=== PATIENT | female | born 1945 | race Caucasian/White ===

== ENCOUNTER → 2016-09-22 | Outpatient (CLI) | payer OTHER, BC ==
[~2016-09-22] MED LIST: ASCO500T3 PO; CALC-393 PO; CHOL1TAB2 PO; CITA20TA4 PO; GLUCTAB7 PO; LATA0.5S OPB; LORA-741 PO; MELO7.5T5 PO; MULT-506 PO; MULT-842 PO; NSS OPB; PRLSR20 PO; ROSU20TA PO; TAMO20TA9 PO
[2016-09-22 10:12] VITALS: BP 136/63; PULSE 58; TEMP 36.5; O2SAT 98
--- NOTE | 2016-09-22 11:45 | Radiation Oncology Follow-Up ---
Radiation Oncology Follow-Up Date of Visit Sep 22, 2016. Reason For Visit One-month follow-up and cancer survivorship care plan Radiation Completion Date finished 08-21-2016 using accelerated partial breast irradiation Diagnosis (1) Intraductal carcinoma of left breast Status: Acute Onset Date: 05/19/2016 Location: central Stage: 0 Permanent Comment: Abnormal left breast mammogram 05/08/16 Status post steriotactic biopsy 05/19/16 showed DCIS Grade 3 Estrogen receptor positive and progesterone receptor positive Status post Lumpectomy 06/30/2016 pTis NX Stage 0 Status post completion of radiation therapy 08/21/2016 received 3850 cGy utilizing accelerated partial breast irradiation Last Edited By: Parvin Turner on Sep 06, 2016 17:46 History of Present Illness Ms. Gallo is a 70-year-old female with a distant history of breast cancer. The patient's paternal aunt had breast cancer. The patient was followed by screening mammograms on 05/08/2016 a bilateral screening mammogram was performed. This showed a new developing grouped calcification in the inner lower left breast, anterior depth that was not definitively identified on prior studies. Spot magnification views were therefore recommended. On 05/12/2016 the patient underwent a left breast diagnostic mammogram with spot magnification views. Calcifications were noted in the inner lower left breast, anterior depth which were definitely not seen on prior studies. Tissue sampling was recommended. Therefore on 05/19/2016 the patient underwent a stereotactic biopsy of the left breast microcalcifications at the 7 o'clock position 2.8 cm from the nipple. 3 passes were made. 2 passes revealed an intermediate grade DCIS. The third pass taken 3.6 cm from the nipple at the 7 o 'clock position revealed a high-grade ductal carcinoma in situ. A single a scopic focus was indefinite for infiltrative duct adenocarcinoma. There was expansive comedonecrosis with an architectural pattern that is solid and associated microcalcifications. Specimen: [id number]. This tissue was ultimately reviewed at the [facility]. Estrogen and progesterone receptors were performed. Estrogen receptors were positive as were progesterone receptors. Case: [id number]. Patient was seen by Dr. Alfonzo Carrillo to discuss definitive treatment options. The patient agreed to proceed with a breast conserving technique. Therefore on 06/30/2016 he performed a left breast needle localization biopsy for the high -grade DCIS. This confirmed residual ductal carcinoma in situ, high-grade with comedonecrosis. The extent of the DCIS appeared to be at minimum 2.0 x 1.0 x 1.0 cm. In one focus there was DCIS 0.7 cm from DCIS in the same section thus the actual size may be larger than the above estimate. DCIS approached the medial margin at less than 0.1 cm from this margin in multiple sections. DCIS is at least several millimeters from all the other margins. The final margin however was negative. Case: [id number]. The patient is a candidate for adjuvant antiestrogen therapy. We were asked to see the patient to review with her the role of adjuvant radiation in this setting. It is for this reason the patient is seen in referral. She underwent CT simulation and was found to be a candidate for accelerated partial breast treatment. She completed treatment 08/21/2016 and received 3850 cGy. Interim History She is doing well over this past month. She did develop an area of redness in the center of the left breast. She has some mild tenderness. This especially causes discomfort when the seat belt is a crossed her chest. She does have a small padded cloth that she places under the seat belt which helps to relieve discomfort when wearing the seat belt. She did experience some peeling of the skin and then a small amount of drainage. This resolved and has steadily healed. There is only some remaining dryness. She has seen Dr. Carrillo and was started on tamoxifen. She is tolerating this well and has no side effects. She stated that she will be scheduled for mammography at her next visit. She has noted no masses or change of the axilla. Allergies Coded Allergies: Metronidazole (Verified Allergy, Unknown, Nausea/vomiting, 07/26/16) Penicillins (Verified Allergy, Unknown, Hives, 07/26/16) Home Medications Scheduled Ascorbic Acid (Vitamin C), 1 TAB PO DAILY Calcium Carbonate (Calcium), 2 TAB PO DAILY Cholecalciferol (Vitamin D-3), 2 TAB PO DAILY Citalopram Hydrobromide (Citalopram Hydrobromide), 1 TAB PO DAILY Latanoprost (Xalatan 0.005% Oph Shannan), 1 DROPS OPB HS Meloxicam (Mobic), 7.5 MG PO DAILY Multiple Minerals W/ Vitamins (Juan Mag Zinc +D3), 1 TAB PO DAILY Multivitamin (Multivitamin), 1 TAB PO DAILY Omeprazole (Prilosec), 20 MG PO DAILY Rosuvastatin Calcium (Crestor), 1 TAB PO DAILY Tamoxifen (Nolvadex), 20 MG PO DAILY [Nss ], 1 DROP OPB TID Scheduled PRN Lorazepam (Ativan), 0.5 MG PO Q6H PRN for Insomnia Review of Systems Gastrointestinal: Symptoms: WNL Oral: Symptoms: No Problems Respiratory: Symptoms: WNL Urinary: Symptoms: Nocturia Comments: nocturia times 2 Skin: Symptoms: Mod-Brisk Erythema Other Skin Symptoms: left breast Breast: Right Upper Arm Measurement: 28.5 Right Mid Arm Measurement: 22.5 Right Wrist Measurement: 15.4 Left Upper Arm Measurement: 27.0 Left Mid Arm Measurement: 21.0 Left Wrist Measurement: 15.0 Arm Dominence: Right Patient Cosmetic Evaluation: Fair Staff Cosmetic Evalaluation: Fair Physical Exam Vital Signs Date Time Temp Pulse Resp B/P Pulse Ox O2 Delivery O2 Flow Rate FiO2 09/22/16 10:12 36.5 58 16 136/63 98 Pain: Side: Bilateral Patient Pain Scale: 0 - 10 Initial Pain Intensity: 0.0 Fatigue: None General Appearance: no apparent distress Eyes: normal inspection, EOMI ENT: normal ENT inspection, hearing grossly normal Neck: no adenopathy, thyroid normal Respiratory/Chest: lungs clear, no respiratory distress, no accessory muscle use Breast: Breast examination reveals well-healed periareolar incision of the left breast. There is mild area centrally. There is mild edema. There is generalized tenderness to the breast. There are no masses. She has no skin retractions. There is mild dryness of the skin centrally. Using the [place] score cosmesis she has a good outcome. The right breast showed no masses or tenderness and no axillary adenopathy. Cardiovascular: regular rate, rhythm, no gallop, no murmur Neurologic/Psychiatric: no motor/sensory deficits, alert, normal mood/affect Skin: warm/dry Lymphatic: no adenopathy Assessment & Plan Plan: Continue regular follow-up with her primary care provider and Dr. Carrillo. She was given samples of Aquaphor to use at bedtime for the skin dryness. Mammography is going to be scheduled at her next visit with Dr. Carrillo. Today we completed a cancer survivorship care plan. A copy of the document was given to the patient. Please see that document for further information. We asked her to return to our office in 6 months. She may call if she has any questions or concerns in the interim. Total Time In Follow-Up I spent 20 minutes speaking to the patient and performing examination. I spent 20 minutes reviewing information in completing this note. Copy To Alfonzo Carrillo M.D.; Khris Hayward PA-C
== END | disposition home or self-care (01) ==
LOC: C.ONC 09:59
PROVIDERS: ATTEND Physician Assistant Medical
DX: Z08 Encounter for follow-up examination after completed treatment for malignant neoplasm (principal); Z92.3 Personal history of irradiation; Z85.3 Personal history of malignant neoplasm of breast

== ENCOUNTER → 2017-03-20 | Outpatient (CLI) | payer OTHER, BC ==
[2016-09-22 10:12] VITALS: BP 136/63; PULSE 58
[~2017-03-20] MED LIST changes: -GLUCTAB7 PO; +TAMO20TA47 PO; -TAMO20TA9 PO
[2017-03-20 14:05] VITALS: BP 128/66; PULSE 64; TEMP 37.1; O2SAT 96
--- NOTE | 2017-03-20 15:54 | Radiation Oncology Follow-Up ---
Radiation Oncology Follow-Up Date of Visit Mar 20, 2017. Reason For Visit 6 month follow-up Radiation Completion Date 08/21/16 Diagnosis (1) Intraductal carcinoma of left breast Status: Resolved Onset Date: 05/19/2016 Stage: 0 Permanent Comment: Abnormal left breast mammogram 05/08/16 Status post steriotactic biopsy 05/19/16 showed DCIS Grade 3 Estrogen receptor positive and progesterone receptor positive Status post Lumpectomy 06/30/2016 pTis NX Stage 0 Status post completion of radiation therapy 08/21/2016 received 3850 cGy utilizing accelerated partial breast irradiation Last Edited By: Parvin Turner on Sep 06, 2016 17:46 History of Present Illness Ms. Gallo is a 70-year-old female with a distant history of breast cancer. The patient's paternal aunt had breast cancer. The patient was followed by screening mammograms on 05/08/2016 a bilateral screening mammogram was performed. This showed a new developing grouped calcification in the inner lower left breast, anterior depth that was not definitively identified on prior studies. Spot magnification views were therefore recommended. On 05/12/2016 the patient underwent a left breast diagnostic mammogram with spot magnification views. Calcifications were noted in the inner lower left breast, anterior depth which were definitely not seen on prior studies. Tissue sampling was recommended. Therefore on 05/19/2016 the patient underwent a stereotactic biopsy of the left breast microcalcifications at the 7 o'clock position 2.8 cm from the nipple. 3 passes were made. 2 passes revealed an intermediate grade DCIS. The third pass taken 3.6 cm from the nipple at the 7 o 'clock position revealed a high-grade ductal carcinoma in situ. A single a scopic focus was indefinite for infiltrative duct adenocarcinoma. There was expansive comedonecrosis with an architectural pattern that is solid and associated microcalcifications. Specimen: [id number]. This tissue was ultimately reviewed at the [facility]. Estrogen and progesterone receptors were performed. Estrogen receptors were positive as were progesterone receptors. Case: [id number]. Patient was seen by Dr. Alfonzo Carrillo to discuss definitive treatment options. The patient agreed to proceed with a breast conserving technique. Therefore on 06/30/2016 he performed a left breast needle localization biopsy for the high -grade DCIS. This confirmed residual ductal carcinoma in situ, high-grade with comedonecrosis. The extent of the DCIS appeared to be at minimum 2.0 x 1.0 x 1.0 cm. In one focus there was DCIS 0.7 cm from DCIS in the same section thus the actual size may be larger than the above estimate. DCIS approached the medial margin at less than 0.1 cm from this margin in multiple sections. DCIS is at least several millimeters from all the other margins. The final margin however was negative. Case: [id number]. The patient is a candidate for adjuvant antiestrogen therapy. We were asked to see the patient to review with her the role of adjuvant radiation in this setting. It is for this reason the patient is seen in referral. She underwent CT simulation and was found to be a candidate for accelerated partial breast treatment. She completed treatment 08/21/2016 and received 3850 cGy. Interim History She's been doing well over the past 6 months. She does have some mild discomfort in the lateral aspect of the left breast. She notices this at night when she lays on her left side. The discomfort does not warrant the need to take any [id number] pain medication. She is noted no masses and no change of the axilla. She's had no swelling of her arm. She is on tamoxifen. She does have associated hot flashes. She is up-to-date on mammography. She had a mammogram at [facility] 12/29/2016. This showed postsurgical changes appear stable. No gross evidence to suggest malignancy. Continue short-term interval follow-up, patient is due for bilateral diagnostic imaging in April 2017. Allergies Coded Allergies: Metronidazole (Verified Allergy, Unknown, Nausea/vomiting, 07/26/16) Penicillins (Verified Allergy, Unknown, Hives, 07/26/16) Home Medications Scheduled Ascorbic Acid (Vitamin C), 1 TAB PO DAILY Calcium Carbonate (Calcium), 2 TAB PO DAILY Cholecalciferol (Vitamin D-3), 2 TAB PO DAILY Citalopram Hydrobromide (Citalopram Hydrobromide), 1 TAB PO DAILY Latanoprost (Xalatan 0.005% Oph Shannan), 1 DROPS OPB HS Meloxicam (Mobic), 7.5 MG PO DAILY Multiple Minerals W/ Vitamins (Juan Mag Zinc +D3), 1 TAB PO DAILY Multivitamin (Multivitamin), 1 TAB PO DAILY Omeprazole (Prilosec), 20 MG PO DAILY Rosuvastatin Calcium (Crestor), 1 TAB PO DAILY Tamoxifen (Nolvadex), 20 MG PO DAILY [Nss ], 1 DROP OPB TID Scheduled PRN Lorazepam (Ativan), 0.5 MG PO Q6H PRN for Insomnia Review of Systems Gastrointestinal: Symptoms: WNL Oral: Symptoms: No Problems Respiratory: Symptoms: WNL Urinary: Symptoms: WNL Comments: nocturia times 2 Skin: Symptoms: No Problems Other Skin Symptoms: left breast Breast: Right Upper Arm Measurement: 26.0 Right Mid Arm Measurement: 20.8 Right Wrist Measurement: 15.3 Left Upper Arm Measurement: 26.5 Left Mid Arm Measurement: 20.7 Left Wrist Measurement: 14.8 Arm Dominence: Right Patient Cosmetic Evaluation: Fair Staff Cosmetic Evalaluation: Fair Physical Exam Vital Signs Date Time Temp Pulse Resp B/P (MAP) Pulse Ox O2 Delivery O2 Flow Rate FiO2 03/20/17 14:05 37.1 64 16 128/66 96 Pain: Side: Bilateral Patient Pain Scale: 0 - 10 Initial Pain Intensity: 0.0 Fatigue: None General Appearance: no apparent distress Eyes: normal inspection, EOMI ENT: normal ENT inspection, hearing grossly normal Neck: no adenopathy, thyroid normal Respiratory/Chest: lungs clear, no respiratory distress, no accessory muscle use Breast: Breast examination reveals well-healed incision of the left breast. There are no masses or tenderness no axillary adenopathy. There are no skin retractions or nipple changes. The incision is long the areola. There is no telangiectasia. Using the [place] score cosmesis she has a excellent outcome. The right breast showed no masses or tenderness and no axillary adenopathy. Cardiovascular: regular rate, rhythm, no gallop, no JVD Extremities: no pedal edema Neurologic/Psychiatric: no motor/sensory deficits, alert, normal mood/affect Skin: warm/dry Additional Studies Mammography as reviewed above. Assessment & Plan Plan: Continue with scheduled mammography. She'll have a mammogram April 2017. This will be a digital diagnostic bilateral mammogram. Continue follow- up with her breast surgeon and primary care physician. She continues on tamoxifen. We discussed the area of tenderness. This is likely posttreatment discomfort that should steadily improve over time. We asked her to return to our office in 1 year. She may call if she has any questions or concerns in the interim. Total Time In Follow-Up I spent 20 minutes speaking to the patient performing examination. I spent 15 minutes reviewing information in completing this note. Copy To Alfonzo Carrillo M.D.; Khris Hayward PA-C
== END | disposition home or self-care (01) ==
LOC: C.ONC 13:59
PROVIDERS: ATTEND Physician Assistant Medical
DX: Z08 Encounter for follow-up examination after completed treatment for malignant neoplasm (principal); Z92.3 Personal history of irradiation; Z86.000 Personal history of in-situ neoplasm of breast